=== PATIENT | female | born 2000 | race American Indian/Alaskan Native ===

== ENCOUNTER 2021-03-07 08:28 | Inpatient (IN) | payer MEDICAID ==
[2021-03-11 16:24] VITALS: BP 129/84
== END 2021-03-11 16:30 | disposition home or self-care (01) | DRG 766 ==
LOC: LD 08:28 → OB 03-09 12:06
PROVIDERS: ADMIT Obstetrics & Gynecology; ATTEND Obstetrics & Gynecology
PROC: 3E0P7VZ Introduction of Hormone into Female Reproductive, Via Natural or Artificial Opening (ICD-10-PCS; principal; 2021-03-09)
PROC: 10D00Z1 Extraction of Products of Conception, Low, Open Approach (ICD-10-PCS; 2021-03-09)
PROC: 10H07YZ Insertion of Other Device into Products of Conception, Via Natural or Artificial Opening (ICD-10-PCS; 2021-03-09)
PROC: 10H073Z Insertion of Monitoring Electrode into Products of Conception, Via Natural or Artificial Opening (ICD-10-PCS; 2021-03-09)
DX: O48.0 Post-term pregnancy (principal); O62.1 Secondary uterine inertia; Z20.822 Contact with and (suspected) exposure to COVID-19; Z3A.41 41 weeks gestation of pregnancy; Z37.0 Single live birth; O69.89X0 Labor and delivery complicated by other cord complications, not applicable or unspecified; O62.0 Primary inadequate contractions
CPT/HCPCS: 36415; 59200; 76815; 85014; 85018; 85027; 86592; 86850; 86900; 86901; G0378; J0690; J1100; J1885; J2405; J2590; J2765; J3010; J3105; J3490; J7120; J7121; U0003